=== PATIENT | male | born 2000 ===

== ENCOUNTER 2022-12-05 22:57 | Emergency (ER) | payer MEDICAID, SELFPAY ==
--- NOTE | ~2022-12-05 | CT_ITS ---
EXAMINATION: CT ABDOMEN AND PELVIS WITH CONTRAST CLINICAL INFORMATION: Left lower quadrant pain, diarrhea, rule out colitis or hernia COMPARISON: None available. TECHNIQUE: Multidetector volumetric images were obtained from the superior aspect of the liver through the pubic symphysis following administration 85 mL of Omnipaque 350 intravenous contrast. Sagittal and coronal reformatted images were obtained on the technologist's workstation. Oral contrast: No This CT examination was performed using dose optimization techniques as appropriate, variously including the following: *Automated exposure control *Adjustment of mA and/or kV according to patient size (this includes techniques or standardized protocols for targeted exams where dose is matched to indication/reason for exam; i.e. extremities or head) *Use of iterative reconstruction technique DLP: 805 mGy-cm FINDINGS: LUNG BASES: The visualized lung bases are unremarkable. LIVER, GALLBLADDER, AND BILIARY TREE: The liver is normal in size, shape, and attenuation. No focal hepatic lesion or biliary ductal dilatation is present. Cholelithiasis is noted, without appreciable surrounding inflammation. PANCREAS: Unremarkable. SPLEEN: Unremarkable. ADRENAL GLANDS: Unremarkable. KIDNEYS AND URETERS: Bilateral nephrograms are symmetric. No hydronephrosis or obstructing calculus identified. BLADDER: Mildly distended and grossly unremarkable. GASTROINTESTINAL TRACT: No evidence of bowel obstruction or significant wall thickening. Patient appears to be status post appendectomy. No free fluid or free air is seen. ABDOMINAL WALL: No significant hernia is appreciated. LYMPH NODES: There are multiple scattered lymph nodes throughout the mesentery, measuring up to 3.2 x 2.1 cm in the left abdomen on image 49/111. A 1.3 cm short axis lymph node in the left mesentery is present on image 40/111. A left external iliac lymph node measures 1.3 cm in short axis dimension on image 85/111, and there is also a 1.2 cm left inguinal lymph node on image 93/111. Remaining lymph nodes appear mostly subcentimeter in size. VASCULAR: Unremarkable. PELVIC VISCERA: Unremarkable. OSSEOUS STRUCTURES: Unremarkable. CT/CT abdomen pelvis w IV con IMPRESSION: 1. No evidence of colitis or significant hernia. 2. Enlarged lymph nodes in the mesentery, left external iliac and left inguinal regions. These are nonspecific and may be reactive, though a malignant etiology such as lymphoma cannot be excluded in the proper clinical setting. Further workup is recommended, which may be performed with follow-up CT in approximately 3 months to assess for resolution. Alternatively, tissue sampling may be considered. 3. Cholelithiasis. If there is clinical concern for cholecystitis, this would be better further assessed with ultrasound.
[2022-12-05 22:59] VITALS: BP 125/80; PULSE 86; RESP 18; TEMP 36.3; O2SAT 98; BMI 30.9
[2022-12-05 23:34] VITALS: BP 113/66; PULSE 72; RESP 18; TEMP 37.1; O2SAT 97
--- NOTE | 2022-12-05 23:37 | MHC.EDTECH ---
THIS PCT JUST ASSUMED CARE OF PT ,VITALS SIGN TAKEN ,PT WENT TO BATHROOM TO GIVE URINE SAMPLE .
--- NOTE | 2022-12-06 00:12 | ED.ABDPAIN ---
HPI - Abdominal Pain General Chief Complaint: Abdominal Pain Stated Complaint: abd pain/d Time Seen by Provider: 12/05/22 23:56 Source: patient and other (Fiancee) Mode of arrival: ambulatory Limitations: no limitations History of Present Illness HPI narrative: 22-year-old female (male gender) who presents to the emergency department for evaluation of abdominal pain and diarrhea. She states that she was lying down when she had a gradual onset left lower quadrant pain. She states the pain is been constant since onset is worse if he pushes on his left lower abdomen. The pain is sharp and is 8/10 at its worst. Patient states that last week he was constipated and started taking a laxative. She states that he is now having 3-4 loose diarrheal stools per day. Denies any blood in the stool. She denied fever, chills, rhinorrhea, sore throat, nausea, vomiting, frequency, dysuria. She called her PCP your advised to go to the emergency department for evaluation. Patient states he has had an unintentional 20 lb weight loss. He denies fever, chills, night sweats, fatigue. Related Data Allergies Allergy/AdvReac Type Severity Reaction Status Date / Time No Known Allergies Allergy Verified 12/06/22 00:13 Review of Systems Review of Systems Yes all other systems are reviewed and are negative [facility] Past Medical History [facility] Narrative: Past medical history: Diabetes mellitus, general herpes. Past surgical history: Appendectomy. Social history: She denies tobacco use. She rarely drinks alcohol. She smokes marijuana 4 times daily. She works at [employer]. Social History Social History Alcohol intake: never Smoked in Last 30 Days: No Use of substances other than those prescribed or required for medical reasons: No Advance Directives: No Advance Directives Information Provided: No Physical Exam ED Vital Signs: Vital Signs - 24 hr 12/05/22 22:59 12/05/22 23:34 Temperature 97.3 F 98.8 F Pulse Rate 86 72 Respiratory Rate 18 18 Blood Pressure 125/80 113/66 Pulse Oximetry 98 97 Oxygen Delivery Method Room Air Room Air BMI result Body Mass Index 30.9 Const Other: Awake, alert, patient, pleasant, cooperative, no distress, answers all questions appropriately, elevated BMI 30.9 HENMT Head: Yes normal to inspection, Yes normocephalic and Yes atraumatic Ears: external ears normal General nose exam: Normal external nose present Face and sinus: Yes normal facial exam Mouth: Normal oral and palatal mucosa present Throat: Yes posterior oropharynx normal Eyes General: appearance normal, both eyes and all related structures Neck Neck: Yes normal visual inspection, Yes no lymphadenopathy, Yes trachea midline and Yes supple Chest Chest palpation & inspection: normal inspection of the chest and normal palpation of entire chest wall Resp Effort & Inspection: normal respiratory effort and able to speak in complete sentences Auscultation: clear to auscultation bilaterally Cardio Rate: regular rate Rhythm: regular rhythm Heart sounds: S1 normal heart sound present, S2 normal heart sound present and no murmurs GI Other: Abdomen is nondistended, normoactive bowel sounds, mild to moderate left lower quadrant tenderness, no palpable mass or hernia Skin General skin exam: no rashes or lesions noted Neuro Cognition (Neuro): normal cognition Motor exam (neuro): 5/5 motor strength present throughout Extrem General: Yes normal to inspection Psych Appearance: grossly normal Speech and movement: Normal speech and movement present Affect: normal affect Attitude: cooperative Medical Decision Making Medical Decision Making MDM Narrative: 22-year-old female patient (male gender) presents emergency department for evaluation of presents emergency department for evaluation through 4 days of loose diarrheal stool with gradual onset of left lower quadrant pain at 21:00 hours. Pain is been constant since onset and is 8/10 at its worst. Vital signs were normal. Exam did reveal localize left lower quadrant tenderness. Following tests were ordered: CBC, BMP, liver panel, lipase, urinalysis. I ordered normal saline x1 L IV and Toradol 15 mg IV. 0234: Patient's pain did improve with the above treatment Patient's laboratory evaluation was nonspecific, he had a normal white blood cell count with a slight elevation in his lymphocyte count at 41%. Creatinine was slightly elevated at 1.49. The CT scan of the abdomen pelvis did not reveal colitis or hernia. CT scan had 2 incidental findings which I discussed with the patient. Patient was aware that he had gallstones and this is not related to his pain. The patient however does have multiple scattered lymph nodes throughout the mesentery with 1 large lymph node in the left lower abdomen measuring 3.2 x 2.1 cm and left external iliac lymph node measuring 1.3 cm and also 1.2 cm lymph node in this area. Possible of these could be reactive lymph nodes or this may represent a malignancy such as melanoma. Patient has had 20 lb unintentional weight loss but no night sweats or significant fatigue. The patient is aware of the possibility of malignancy and will need to follow-up with his PCP for further evaluation The patient does have leave at home he was advised to take 1 pill every 12 hours as needed for pain. Differential Diagnosis Differential Diagnoses: The differential diagnosis associated with the presentation includes Differential diagnosis includes was not limited to diverticulitis, colitis, hernia, pancreatitis, viral syndrome, mesenteric adenitis Admission/Observation Consideration of admission/observation: Escalation of care including admission/observation considered Lab Data MDM Lab Attestation statement: I reviewed the patient's lab results. My independent review of the patient's laboratory evaluation is as follows: Normal WBC with normal number of neutrophils at 50% and 41% lymphocytes which is slightly elevated. Creatinine was slightly elevated at 1.49. Glucose elevated 130. LFTs and lipase were normal. Urinalysis revealed 1+ leukocyte esterase, 1+ protein. Microscopic revealed 0 RBCs, 50 WBCs 2 squamous cells and no bacteria-this is not consistent with urinary tract infection. 12/06/22 00:11 12/06/22 00:11 Labs: Lab Results 12/06/22 12/06/22 12/06/22 Range/Units 00:11 00:11 00:11 WBC 6.3 (4.8-10.8) X10*3/uL RBC 5.38 (4.60-5.80) X10*6/uL Hgb 14.1 (14.0-18.0) g/dl Hct 43.6 (42.0-52.0) % MCV 81.0 (80.0-98.0) fL MCH 26.2 L (27.0-33.0) pg MCHC 32.3 (31.0-36.0) g/dl RDW 12.7 (11.0-16.0) % Plt Count 352 (160-400) X10*3/uL MPV 10.3 (9.4-12.4) fL Immature Gran % (Auto) 0.2 (0.0-0.4) % Neut % (Auto) 50.4 (45-73) % Lymph % (Auto) 41.2 H (20-40) % [place] % (Auto) 6.1 (2-11) % Eos % (Auto) 1.1 (0-4) % Baso % (Auto) 1.0 (0-2) % Lymph # (Auto) 2.6 (1.2-4.9) X10*3/uL [place] # (Auto) 0.4 (0.1-1.2) X10*3/uL Eos # (Auto) 0.1 (0.0-0.4) X10*3/uL Baso # (Auto) 0.1 (0.0-0.2) X10*3/uL Abs Immat Gran (auto) 0.01 (0.00-0.03) X10*3/uL Absolute Neuts (auto) 3.2 (2.0-8.3) x10*3/uL Absolute Nucleated RBC 0.000 (0.0-0.012) X10*3/uL Nucleated RBC % (auto) 0.0 (0.0-0.2) /100WBC Sodium 141 (135-145) mmol/L Potassium 4.1 (3.3-5.1) mmol/L Chloride 106 (96-108) mmol/L Carbon Dioxide 25 (22-29) mmol/L Anion Gap 14 (12-20) BUN 12 (9-16) mg/dL Creatinine 1.49 H (0.5-1.4) mg/dL Estim Creat Clear Calc 105.0 Estimated GFR 59 Random Glucose 130 H (60-115) mg/dL Calcium 10.2 (8.4-10.2) mg/dL Total Bilirubin 0.6 (0.0-1.0) mg/dL Direct Bilirubin 0.2 (0.0-0.5) mg/dL AST 19 (5-37) U/L ALT 25 (0-40) U/L Alkaline Phosphatase 79 (39-117) U/L Total Protein 7.3 (6.5-8.0) g/dL Albumin 4.2 (3.5-5.0) g/dL Lipase 15 (8-78) U/L Urine Color Dark Yellow Urine Appearance Clear Urine pH 6.0 (5.0-9.0) Ur Specific [place] >= 1.030 H (1.005-1.025) Urine Protein 30 (1+) H (Neg-Trace) mg/dL Urine Glucose (UA) Negative (Negative) mg/dL Urine Ketones 15 (Negative) mg/dL Urine Blood Negative (Negative) Urine Nitrite Negative (Negative) Ur Leukocyte Esterase Small (1+) H (Negative) Urine RBC 0-2 (0-2) /HPF Urine WBC 21-50 H (0-5) /HPF Ur Squamous Epith Cells 0-2 (0-2) /HPF Urine Bacteria None Seen (None Seen) Hyaline Casts 0-2 (0-2) /LPF Radiology Impression Discussion of test interpretation with radiology: I have reviewed the radiologist's reading. Radiologist Impression: CT ABDOMEN AND PELVIS WITH CONTRAST CLINICAL INFORMATION: Left lower quadrant pain, diarrhea, rule out colitis or hernia COMPARISON: None available. FINDINGS: LUNG BASES: The visualized lung bases are unremarkable. LIVER, GALLBLADDER, AND BILIARY TREE: The liver is normal in size, shape, and attenuation. No focal hepatic lesion or biliary ductal dilatation is present. Cholelithiasis is noted, without appreciable surrounding inflammation. PANCREAS: Unremarkable. SPLEEN: Unremarkable. ADRENAL GLANDS: Unremarkable. KIDNEYS AND URETERS: Bilateral nephrograms are symmetric. No hydronephrosis or obstructing calculus identified. BLADDER: Mildly distended and grossly unremarkable. GASTROINTESTINAL TRACT: No evidence of bowel obstruction or significant wall thickening. Patient appears to be status post appendectomy. No free fluid or free air is seen. ABDOMINAL WALL: No significant hernia is appreciated. LYMPH NODES: There are multiple scattered lymph nodes throughout the mesentery, measuring up to 3.2 x 2.1 cm in the left abdomen on image 49/111. A 1.3 cm short axis lymph node in the left mesentery is present on image 40/111. A left external iliac lymph node measures 1.3 cm in short axis dimension on image 85/111, and there is also a 1.2 cm left inguinal lymph node on image 93/111. Remaining lymph nodes appear mostly subcentimeter in size. VASCULAR: Unremarkable. PELVIC VISCERA: Unremarkable. OSSEOUS STRUCTURES: Unremarkable. CT/CT abdomen pelvis w IV con IMPRESSION: 1. No evidence of colitis or significant hernia. 2. Enlarged lymph nodes in the mesentery, left external iliac and left inguinal regions. These are nonspecific and may be reactive, though a malignant etiology such as lymphoma cannot be excluded in the proper clinical setting. Further workup is recommended, which may be performed with follow-up CT in approximately 3 months to assess for resolution. Alternatively, tissue sampling may be considered. 3. Cholelithiasis. If there is clinical concern for cholecystitis, this would be better further assessed with ultrasound. Dictated By:Jalen Leger MD Independent Historian Clinical information obtained from an independent historian. History obtained from or confirmed by: Other (Fiancee) Medications Administered Discontinued Medications Generic Name Dose Route Start Last Admin Trade Name Freq PRN Reason Stop Dose Admin Sodium Chloride 1,000 mls @ 999 mls/hr 12/06/22 00:15 12/06/22 01:42 Ns IV 12/06/22 01:15 Infused .Q1H1M STA Infusion Iohexol 85 ml 12/06/22 01:09 12/06/22 01:10 Iohexol 350 Mg/Ml 100 Ml Infus..Btl IV 12/06/22 01:10 85 ml ONCE ONE Administration Ketorolac Tromethamine 15 mg 12/06/22 00:15 12/06/22 00:39 Ketorolac Tromethamine 15 Mg/Ml Vial IVPUSH 12/06/22 00:16 15 mg ONCE STA Administration Discharge Plan Discharge Clinical Impression: Acute mesenteric adenitis, Enlarged lymph nodes, Gallstones Abdominal pain Qualifiers: Abdominal location: left lower quadrant Qualified Code(s): R10.32 - Left lower quadrant pain Patient Disposition: Home, Self-Care Instructions: Lymphadenopathy (ED) Additional Instructions: Your white blood cell count was normal. Your comprehensive metabolic panel and lipase were normal. The CT scan of your abdomen and pelvis with IV contrast did not reveal a clear cause for your pain. There was no hernia noted and no evidence for inflammation of the colon (colitis). You had 2 incidental findings on the CT scan 1). You have gallstones 2). You have enlarged lymph node especially in the left lower aspect of your abdomen in the area where your having the pain. These enlarged lymph nodes can be caused by a viral infection (reactive lymph node) or sometimes enlarged lymph nodes can be caused by lymphoma (cancer of the lymph nodes) I want you to call your doctor in morning to get follow-up within a week. Your primary care doctor needs to determine what for test you need or needs to referral you to an oncologist/solution engineer to help determine next steps in figuring out the cause of your swollen lymph nodes. Take Aleve 220 mg pills, 1 pills every 12 hours as needed for pain. Take Tylenol (acetaminophen) 500 mg pills, 2 pills every 6 hours as needed for pain. Follow-up with your doctor in 2 days. Please return to the emergency department if your symptoms get worse or if you develop any symptoms that are concerning to you.
[2022-12-06 00:16] LABS: Basophils Absolute Auto 0.1 X10*3/uL (0.0-0.2); Eosinophils Absolute Auto 0.1 X10*3/uL (0.0-0.4); Eosinophils Percent Auto 1.1 % (0-4); Hematocrit 43.6 % (42.0-52.0); Hemoglobin 14.1 g/dl (14.0-18.0); Imm Gran Abs Auto 0.01 X10*3/uL (0.00-0.03); Imm Gran Pct Auto 0.2 % (0.0-0.4); Lymphocytes Absolute Auto 2.6 X10*3/uL (1.2-4.9); Lymphocytes Percent Auto 41.2 % (20-40); MANUAL DIFF FLAG NO; Mean Corpuscular HGB Conc 32.3 g/dl (31.0-36.0); Mean Corpuscular Hemoglobin 26.2 pg (27.0-33.0); Mean Platelet Volume 10.3 fL (9.4-12.4); Monocytes Absolute Auto 0.4 X10*3/uL (0.1-1.2); Monocytes Percent Auto 6.1 % (2-11); Neutrophils Absolute Auto 3.2 x10*3/uL (2.0-8.3); Neutrophils Percent Auto 50.4 % (45-73); Platelet Count 352 X10*3/uL (160-400); Red Blood Count 5.38 X10*6/uL (4.60-5.80); Red Cell Distribution Width 12.7 % (11.0-16.0); White Blood Count 6.3 X10*3/uL (4.8-10.8)
[2022-12-06 00:18] LABS: Appearance Urine Clear; Color Urine Dark Yellow; Glucose Urine UA Negative (Negative); Leukocyte Esterase Urine Small (1+) (Negative); Nitrite Urine Negative (Negative); Specific Gravity - Urine >= 1.030 (1.005-1.025); UMIC TRIGGER UACC YES; Urine Blood Negative (Negative); Urine Ketones 15 mg/dL (Negative); Urine Protein 30 (1+) mg/dL (Neg-Trace)
[2022-12-06 00:23] LABS: Bacteria Urine None Seen (None Seen); Hyaline Casts Urine 0-2 /LPF (0-2); RBC Urine 0-2 /HPF (0-2); Squamous Epithelial Cell Urine 0-2 /HPF (0-2); UACC Culture Trigger YES; WBC Urine 21-50 /HPF (0-5)
[2022-12-06 00:34] LABS: Alanine Aminotransferase 25 U/L (0-40); Albumin Level 4.2 g/dL (3.5-5.0); Alkaline Phosphatase 79 U/L (39-117); Anion Gap 14 (12-20); Aspartate Amino Transferase 19 U/L (5-37); Bilirubin Direct 0.2 mg/dL (0.0-0.5); Bilirubin Total 0.6 mg/dL (0.0-1.0); Blood Urea Nitrogen 12 mg/dL (9-16); Calcium 10.2 mg/dL (8.4-10.2); Carbon Dioxide 25 mmol/L (22-29); Chloride 106 mmol/L (96-108); Estimated Glomerular Filt Rate 59; Glucose Random 130 mg/dL (60-115); Lipase 15 U/L (8-78); Potassium 4.1 mmol/L (3.3-5.1); Sodium 141 mmol/L (135-145); Total Protein 7.3 g/dL (6.5-8.0)
[2022-12-06] MEDS: 0.9 % Sodium Chloride 1,000 ML 999 ML IV (00:38)
[2022-12-06] MEDS: Ketorolac Tromethamine 15 MG/ML VIAL IVPUSH (00:39)
[2022-12-06] MEDS: iohexoL 350 MG/ML 100 ML INFUS..BTL 85 ML IV (01:10)
[2022-12-06 02:00] VITALS: BP 136/82; PULSE 69; RESP 16; TEMP 36.9; O2SAT 98
== END 2022-12-06 02:56 | disposition home or self-care (01) ==
PROVIDERS: Emergency Provider Emergency Medicine Emergency Medical Services
DX: I88.0 Nonspecific mesenteric lymphadenitis (principal); R59.9 Enlarged lymph nodes, unspecified; K80.20 Calculus of gallbladder without cholecystitis without obstruction; R10.32 Left lower quadrant pain
CPT/HCPCS: 36415; 74177; 80048; 80076; 81001; 83690; 85025; 87086; 96361; 96374; 99284; J1885; Q9967